=== PATIENT | male | born 1965 | race Caucasian/White ===

== ENCOUNTER 2018-10-25 20:49 | Emergency (ER) | payer BC ==
[~2018-10-25] VITALS: Ht 172.7 cm; Wt 72.6 kg
[2018-10-25 21:24] VITALS: BP_SYST 143
--- NOTE | 2018-10-25 21:28 | NUR ---
Patient to ER bed 05 for evaluation. Side rails up. Report given to [facility].
--- NOTE | 2018-10-25 21:32 | NUR ---
Pt BIB family to ED C/O back pain for 6 months, and difficulty urinating as related to slow stream. No other significant med Hx. No other complaints and or injuries noted and or observed. VSS, no s/s of acute distress. Resting on gurney with rails up
--- NOTE | 2018-10-25 21:48 | NUR ---
ER at bedside examining patient.
--- NOTE | 2018-10-25 21:48 | NUR ---
Dr. Beasley bedside for pt eval
[2018-10-25] MEDS ORDERED: KETOROLAC TROMETHAMINE 60 MG/2 ML VIAL IM ONE (22:00)
--- NOTE | 2018-10-25 22:05 | NUR ---
Pt states feeling much better. Resting on gurney, bed rails up with VSS, no s/s of acute distress.
[2018-10-25 22:35] VITALS: BP_SYST 138
--- NOTE | 2018-10-25 22:35 | NUR ---
Patient given written and verbal discharge instructions and verbalizes understanding. ER MD discussed with patient the results and treatment provided. Patient in stable condition. ID arm band removed. Rx of Motrin given. Patient educated on pain management and to follow up with PMD. Pain Scale 0/10. Opportunity for questions provided and answered. Medication side effect fact sheet provided.
== END 2018-10-25 22:35 | disposition home or self-care (01) ==
LOC: SED 20:49
DX: M54.5 Low back pain (principal); R30.0 Dysuria; I10 Essential (primary) hypertension
CPT/HCPCS: 96372; 99283; J1885